=== PATIENT | male | born 1945 | race Caucasian/White ===

== ENCOUNTER → 2018-11-09 | Outpatient (CLI) | payer MEDICARE, OTHER ==
[~2018-11-09] MED LIST: ASPI81CH; B-COMPLEX WITH1 EAC1 PO; FISH OIL 1,4001 EACH PO; GLUCOSAMINE HC500 MG PO; Hydrochlorothia25 MG; LOSA50 PO; METF500 PO; NIACIN FLUSH-F400 MG PO; POTASSIUM99 MG; Saw Palmetto C1 EACH; TRAM50 PO
== END ==
LOC: LAB SHORT 13:44 → PLD 13:44
DX: D48.5 Neoplasm of uncertain behavior of skin (principal)
CPT/HCPCS: 88304